=== PATIENT | male | born 1955 | race Caucasian/White ===

== ENCOUNTER 2017-02-19 06:34 | Day surgery (SDC) | payer OTHER ==
[2017-02-09 11:15] VITALS: BMI 24.4
[2017-02-19] MEDS ORDERED: Lidocaine 1% Inj (20ml) ONE (07:43)
[2017-02-19] MEDS ORDERED: Bupivacaine/Epi 0.25%-1:200,000 10 ml PF inj IJ ONE (07:43)
[2017-02-19] MEDS ORDERED: Lactated Ringer's 1,000 ML IV ONE ×3 (08:22→13:00)
[2017-02-19] MEDS ORDERED: Succinylcholine Chloride 20 mg/ml Syr (5 ml) IV ONE (08:25)
[2017-02-19] MEDS ORDERED: Midazolam 2 MG/2 ML VIAL ONE (08:25)
[2017-02-19] MEDS ORDERED: Propofol 10 mg/ml Inj (20 ML) ONE (08:25)
[2017-02-19] MEDS ORDERED: Rocuronium 10 mg/ml (10 ml) ONE (08:25)
[2017-02-19] MEDS ORDERED: Vancomycin 1 gm/D5W 200 ml 1 GM/200 ML BAG IVPB ONE (08:36)
[2017-02-19] MEDS ORDERED: Morphine 4 MG/ML VIAL ONE (09:48)
[2017-02-19] MEDS ORDERED: Neostigmine Methylsulfate 3mg/3ml Syringe IV ONE (10:21)
[2017-02-19] MEDS ORDERED: HYDROmorphone 1 mg/ml ISec IVP PRN (10:21)
--- NOTE | 2017-02-19 10:53 | PCM.SURG1 ---
Surgeon's Initial Post Op Note - Surgeon's Notes Surgeon: Anushka Managed Care Director: Zaid Burrows Type of Anesthesia: General Endo, Local Pre-Operative Diagnosis: Right inguinal hernia Operative Findings: B/L inguinal hernia Post-Operative Diagnosis: B/L Inguinal hernia Operation Performed: Robotic assisted TAP B/L inguinal hernia repair w. mesh Specimen/Specimens Removed: none Estimated Blood Loss: EBL {In ML}: 10 Blood Products Given: N/A Drains Used: No Drains Post-Op Condition: Good Date of Surgery/Procedure: 02/19/17 Time of Surgery/Procedure: 10:53
[2017-02-19] MEDS ORDERED: Oxycodone/Acetaminophen 5/325 mg Tab PO PRN (10:54)
[2017-02-19] MEDS ORDERED: HYDROmorphone 0.5 mg/0.5 ml ISec ONE (11:56)
[2017-02-19 13:29] VITALS: BP 100/60; PULSE 87; RESP 18; TEMP 97; O2SAT 100
--- NOTE | 2017-02-19 20:08 | OP ---
PROCEDURE DATE: 02/19/2017 PREOPERATIVE DIAGNOSIS: Right inguinal hernia, possible bilateral inguinal hernia. POSTOPERATIVE DIAGNOSIS: Right direct and indirect inguinal hernia and left direct inguinal hernia, extensive post-infectious adhesion due to the previous open appendectomy. PROCEDURE DONE: 1. Robotic right inguinal hernia repair with mesh. 2. Robotic left inguinal hernia repair with the mesh. 3. Robotic extensive lysis of adhesion due to previous Open appendectomy. SURGEON: Semaj Reveles MD. INDEPENDENT JEWELER: Cherelle Rendon. Cherelle was present from the beginning up to the end of the procedure, helped in the prepping and draping, placement of the port, docking and undocking of the robot, and the closure of the wound. ANESTHESIA: General endotracheal tube anesthesia. ESTIMATED BLOOD LOSS: Around 10 mL. DRAINS: None. PATHOLOGY: None. COMPLICATIONS: None. INTRAOPERATIVE FINDINGS: The patient had a right direct and indirect and a left direct inguinal hernia. INTRAOPERATIVE STEPS: This 61-year-old male who was diagnosed with a right inguinal hernia and the patient was consented for robotic right inguinal hernia repair with the mesh, possible bilateral. The patient was brought to the OR, placed supine on the operating table. After induction of the anesthesia, abdomen was prepped and draped in the usual sterile fashion. Supraumbilical transverse 1.5 cm incision was made. After incising skin and subcutaneous tissue, the fascia was incised and the robotic camera port was placed. Another three 8 mm ports were placed in the upper abdomen, 2 on the left side and 1 on the right side, and the robot was brought in and camera arm and arm 1 and arm 2 was docked. The peritoneal adhesions due to the previous appendectomy was lysed , and after extensive lysis of adhesion, the peritoneal incision was made from the one ASIS up to the second ASIS, and during exploration, the patient found to have large direct inguinal hernia and a decision was made to do a bilateral inguinal hernia repair. Dissection was carried down medially up to the pubic symphysis and the space of Retzius laterally to the left abdominal wall and medially. The spermatic cord vessels and the vas deferens was identified and the peritoneal sac was dissected free from the surrounding structures and the same dissection was done on the left side and the bilateral right and the left anatomical mesh was placed. After proper implantation of the mesh, the peritoneum was sutured with 0 Vicryl V-Loc suture and a small hole in the peritoneum was sutured with 2-0 Vicryl suture and pneumo was deflated and the umbilical port site was closed in 2 layers, the fascia with 0 Vicryl interrupted sutures, the skin with 4-0 Monocryl and dry sterile dressing was applied. The patient tolerated the procedure well. Count of instruments and gauze was correct. There was no apparent complication. The patient was extubated in the OR, sent to the postanesthesia care unit in stable condition. Semaj Reveles MD cc: [id number] TT: 02/19/2017 20:07:29 lloyd [email or web address]
== END 2017-02-19 14:21 | disposition home or self-care (01) ==
LOC: C.SDS 06:34
PROVIDERS: ATTEND Surgery Surgical Critical Care
DX: K40.20 Bilateral inguinal hernia, without obstruction or gangrene, not specified as recurrent (principal); K66.0 Peritoneal adhesions (postprocedural) (postinfection)
CPT/HCPCS: 49329; 49650; C1781; J1170; J1885; J2001; J2250; J2270; J2405; J2704; J2710; J3010; J7120